=== PATIENT | female | born 1990 | race Caucasian/White ===

== ENCOUNTER 2018-10-17 18:21 | Emergency (ER) | payer SELFPAY ==
[~2018-10-17] VITALS: Ht 162 cm; Wt 102.2 kg
[2018-10-17] MEDS ORDERED: CLIN300C11 PO (19:39)
[2018-10-17] MEDS ORDERED: OXYC1TAB87 PO (19:39)
--- NOTE | 2018-10-17 19:40 | ED EENT ---
History of Present Illness General Chief Complaint: Dental Problems/Pain Stated Complaint: TOOTH ACHE LT SIDE Nursing Triage Note: PT REPORTS LEFT SIDE DENTAL PAIN FOR 2 DAYS. Source: patient History of Present Illness Date Seen by Provider: Oct 17, 2018 Time Seen by Provider: 19:20 Initial Comments Patient is a 28-year-old female presents with left lower anterior bicuspid dental pain/dental fracture. Patient states to started eroding several days ago has gradually become more painful and tender despite taking ibuprofen and using Orajel. Patient states she has been unable to contact a dentist but does have plans to do so in 2 days. Denies dysphonia drooling and trismus. No facial swelling or soft tissue abscess noted. Timing/Duration: gradual Severity: severe Location: dental Prearrival Treatment: over the counter meds Associated Symptoms: tooth pain Allergies and Home Medications Patient Home Medication List Home Medication List Reviewed: Yes Review of Systems Review of Systems Constitutional: no symptoms reported Eyes: No Symptoms Reported Nose: no symptoms reported Mouth: see HPI Throat: no symptoms reported Past Hhxkxrq-Etezgu-Uclqmn Hx Past Med/Social Hx: Reviewed Nursing Past Med/Soc Hx Patient Social History Alcohol Use: Denies Use Recreational Drug Use: No Smoking Status: Current Everyday Smoker Type Used: Cigarettes 2nd Hand Smoke Exposure: Yes Recent Foreign Travel: No Contact w/Someone Who Travel: No Recent Infectious Disease Expo: No Recent Hopitalizations: No Physical Abuse: No Sexual Abuse: No Mistreated: No Fear: No Seasonal Allergies Seasonal Allergies: No Past Medical History Surgeries: No Respiratory: No Cardiac: No Neurological: No Genitourinary: No Gastrointestinal: No Musculoskeletal: No Endocrine: No HEENT: No Cancer: No Psychosocial: No Integumentary: No Blood Disorders: No Physical Exam Vital Signs Vital Signs - First Documented 10/17/18 18:45 Temp 36.6 Pulse 77 Resp 18 B/P (MAP) 142/79 Pulse Ox 98 O2 Delivery Room Air Height, Weight, BMI Height: '" Weight: lbs. oz. kg; 38.00 BMI Method: General Appearance: moderate distress Nose: normal inspection Mouth/Throat: normal mouth inspection, dental tenderness, other (erosion of left anterior lower bicuspids) Neck: non-tender, full range of motion, supple Cardiovascular: regular rate, rhythm Progress/Results/Core Measures Results/Orders Vital Signs/I&O 10/17/18 18:45 Temp 36.6 Pulse 77 Resp 18 B/P (MAP) 142/79 Pulse Ox 98 O2 Delivery Room Air Blood Pressure Mean: 100 Departure Communication (Admissions) Inbox and pain medication provided. Recommendations are continued supportive care with early dentist follow-up. Impression Primary Impression: Dental caries Additional Impression: Pain, dental Disposition: HOME, SELF-CARE Condition: Improved Departure-Patient Inst. Referrals: NO,LOCAL PHYSICIAN (PCP) Primary Care Physician Patient Instructions: Tooth Decay, Adult (DC) Add. Discharge Instructions: Please take antibiotics as directed, ibuprofen for pain and Percocet as directed. Follow-up with dentist of choice [facility]. All discharge instructions reviewed with patient and/or family. Voiced understanding. Scripts Oxycodone HCl/Acetaminophen (Percocet 5-325 mg Tablet) 1 Each Tablet 1 TAB PO Q4H for PAIN-MODERATE MDD 6 TABS for 7 Days, #20 TAB Prov: CHANDNI ANDERSEN DO 10/17/18 Clindamycin HCl (Clindamycin HCl) 300 Mg Capsule 300 MG PO QID, #40 CAP Prov: CHANDNI ANDERSEN DO 10/17/18 CHANDNI ANDERSEN DO Oct 17, 2018 19:40
[2018-10-17] MEDS ORDERED: CLINDAMYCIN 150 MG (CLEOCIN) CAP PO ONE (19:45)
[2018-10-17] MEDS ORDERED: oxyCODONE/APAP 10/325MG (PERCOCET 10) TABLET PO ONE (19:45)
[2018-10-17 19:48] VITALS: BP 121/78
[2018-10-17] MEDS ORDERED: oxyCODONE/APAP 5/325MG (PERCOCET 5) TABLET PO ONE (20:00)
== END 2018-10-17 20:06 | disposition home or self-care (01) ==
LOC: EDUNIT# 18:21 → ER FS 18:22
DX: K02.9 Dental caries, unspecified (principal); F17.210 Nicotine dependence, cigarettes, uncomplicated
CPT/HCPCS: 99282